=== PATIENT | male | born 1995 | race American Indian/Alaskan Native ===

== ENCOUNTER 2016-11-27 09:12 | Inpatient (IN) | payer MEDICAID ==
[2016-11-27 09:12] VITALS: BMI 17.8
[2016-11-27] MEDS ORDERED: Barium Sulfate Susp 2.1% w/v, 2.0% w/w 450 mL Bottle PO ONE ×3 (10:05)
[2016-11-27] MEDS ORDERED: Sodium Chloride 0.9% 1,000 ML IV STA (10:06)
--- NOTE | 2016-11-27 10:13 | ED PDOC ---
HPI: General Adult Time Seen by Provider: 11/27/16 09:14 Chief Complaint (Nursing): Weakness/Neurological Deficit Chief Complaint (Provider): Abdominal Pain History Per: Patient Onset/Duration Of Symptoms: Days (x2 days) Current Symptoms Are (Timing): Still Present Additional Complaint(s): 21 y/o male with a past medial history of crohn's and anemia who presents to the emergency department with a complaint of generalized abdominal pain x2days. Associated with subjective fevers, chills, nausea, vomiting, and diarrhea. Patient states he has Crohn's disease and is currently taking remicade. Reports he underwent multiple surgeries for crohn's and noted drainage from surgical wounds. Past Medical History Reviewed: Historical Data, Nursing Documentation, Vital Signs Vital Signs: Last Vital Signs Temp 98.3 F 11/27/16 09:18 Pulse 99 H 11/27/16 09:18 Resp 20 11/27/16 09:18 BP 171/105 H 11/27/16 09:18 Pulse Ox 98 11/27/16 11:23 - Medical History PMH: Anemia (Fe Def Anemia), Crohn's Disease Denies: Chronic Kidney Disease, TIA - Surgical History Other surgeries: Crohn's Disease - Family History Family History: States: Unknown Family Hx - Social History Current smoker - smoking cessation education provided: No Alcohol: None Drugs: Denies - Immunization History Hx Tetanus Toxoid Vaccination: No Hx Influenza Vaccination: Yes Hx Pneumococcal Vaccination: No - Home Medications Home Medications: Ambulatory Orders Medication Instructions Recorded oxyCODONE/Acetaminophen [Percocet 1 ea PO Q6H PRN #10 tab 11/19/16 5/325 mg Tab] Docusate [Colace] 100 mg PO DAILY #30 cap 11/24/16 Ferrous Sulfate 325 mg PO DAILY #30 tablet 11/24/16 Linezolid [Zyvox] 600 mg PO BID #12 tab 11/24/16 - Allergies Allergies/Adverse Reactions: Allergies Allergy/AdvReac Type Severity Reaction Status Date / Time FISH Allergy RASH Verified 11/27/16 09:40 shellfish derived AdvReac ANGIOEDEMA Verified 11/27/16 09:40 Review of Systems ROS Statement: Except As Marked, All Systems Reviewed And Found Negative Constitutional: Positive for: Fever, Chills Gastrointestinal: Positive for: Nausea, Vomiting, Abdominal Pain (generalized), Diarrhea Physical Exam - Reviewed Nursing Documentation Reviewed: Yes Vital Signs Reviewed: Yes - Physical Exam Appears: Positive for: Non-toxic, No Acute Distress Head Exam: Positive for: ATRAUMATIC, NORMOCEPHALIC ENT: Positive for: Normal ENT Inspection. Negative for: Pharyngeal Erythema Neck: Positive for: Normal, Supple Cardiovascular/Chest: Positive for: Regular Rate, Rhythm. Negative for: Murmur Respiratory: Positive for: Normal Breath Sounds. Negative for: Accessory Muscle Use, Respiratory Distress Gastrointestinal/Abdominal: Positive for: Soft, Tenderness (Abdomen is tender in all four quadrants with purulent drainage from surgical wounds). Negative for: Normal Exam Extremity: Positive for: Normal ROM. Negative for: Pedal Edema, Swelling Neurologic/Psych: Positive for: Alert, Oriented - Laboratory Results Result Diagrams: 11/27/16 10:28 11/27/16 10:28 - ECG O2 Sat by Pulse Oximetry: 98 (RA) Pulse Ox Interpretation: Normal Medical Decision Making Medical Decision Making: Time: 9:14 Initial impression: Abdominal pain Initial plan: --VBG Shock Panel --ABD & Pelvis PO Contrast CT --COMP Metabolic Panel --CBC w/ differential --Bentyl 10 mg PO --Morphine 2 mg IVP --Sodium Chloride 1,000 ml IV 100 mls/hr --Barium Sulfate 300 ml PO --Barium Sulfate 450 mg PO --Zofran Inj 4 mg IVP --Blood Culture Stat --Revaluation Time: 11:14 --Morphie 2 mg IVP --ABD & Pelvis W/O PO or IV Contrast --Physician Consult Routine --Call Physician Consult PRN --Admit to hospital routine Scribe Attestation: Documented by Bianka Gardner, acting as a scribe for Sanya Maza MD. Provider Scribe Attestation: All medical record entries made by the Scribe were at my direction and personally dictated by me. I have reviewed the chart and agree that the record accurately reflects my personal performance of the history, physical exam, medical decision making, and the department course for this patient. I have also personally directed, reviewed, and agree with the discharge instructions and disposition. Disposition - Clinical Impression Clinical Impression: Crohn's disease, Abdominal pain, Fistula - Patient ED Disposition Is Patient to be Admitted: Yes - Disposition Disposition Time: 11:25 Condition: FAIR - Pt Status Changed To: Hospital Disposition Of: Inpatient - Admit Certification Admit to Inpatient:: After my assessment, the patient will require hospitalization for at least two midnights. This is because of the severity of symptoms shown, intensity of services needed, and/or the medical risk in this patient being treated as an outpatient. - POA Present On Arrival: None
[2016-11-27 10:42] LABS: BASO % 0.8 % (0.0-2.0); EOS % 0.3 % (0.0-4.0); LYMPH # 0.5 K/uL (1.0-4.3); LYMPH % 14.9 % (20.0-40.0); MEAN CELL VOLUME 70.6 fl (80.0-94.0); MEAN CORPUSCULAR HEMOGLOBIN 22.4 pg (27.0-31.0); MEAN CORPUSCULAR HGB CONC 31.8 g/dL (33.0-37.0); MEAN PLATELET VOLUME 6.3 fl (7.2-11.7); MONO # 0.5 K/uL (0.0-0.8); MONO % 15.6 % (0.0-10.0); NEUT # 2.4 K/uL (1.8-7.0); NEUT % 68.4 % (50.0-75.0); RED CELL DISTRIBUTION WIDTH 23.8 % (11.5-14.5); WHITE BLOOD COUNT 3.5 K/uL (4.8-10.8)
[2016-11-27 10:49] LABS: ALB/GLOB RATIO 0.8 (1.0-2.1); ALKALINE PHOSPHATASE 104 U/L (38-126); ALT/SGPT 67 U/L (21-72); AST/SGOT 67 U/L (17-59); BILIRUBIN,TOTAL 0.3 mg/dl (0.2-1.3); BLOOD UREA NITROGEN 8 mg/dl (9-20); CALCIUM 8.4 mg/dL (8.4-10.2); CARBON DIOXIDE 25 mmol/L (22-30); CHLORIDE 101 mmol/L (98-107); GFR AFRICAN-AMERICAN > 60; GLUCOSE,RANDOM 97 mg/dL (75-110); POTASSIUM 3.7 MMOL/L (3.6-5.0); SODIUM 141 mmol/l (132-148); TOTAL PROTEIN 7.9 G/DL (6.3-8.2)
[2016-11-27 10:54] LABS: VENOUS BLOOD GAS BASE EXCESS 4.4 mmol/L (0.0-2.0); VENOUS BLOOD GAS PCO2 39 mmHg (40-60); VENOUS BLOOD PH 7.47 (7.32-7.43)
[2016-11-27] MEDS ORDERED: Piperacillin/Tazobact 3.375 GM in Sodium Chloride 0.9% 100 ML IVPB STA (11:22)
[2016-11-27] MEDS ORDERED: Clindamycin 600 MG in Sodium Chloride 0.9% 100 ML IVPB ONE (11:27)
[2016-11-27] MEDS ORDERED: metroNIDAZOLE 500mg/100ml NS 100 ML IVPB STA (12:04)
--- NOTE | 2016-11-27 12:23 | CT ---
PROCEDURE: CT Abdomen and Pelvis without intravenous contrast HISTORY: r/o kidney stone COMPARISON: None. TECHNIQUE: CT scan of the abdomen and pelvis was performed without administration of intravenous contrast. Oral contrast was not administered. Coronal and sagittal reformatted images were obtained. Radiation dose: Total exam DLP = 318.26 mGy-cm. This CT exam was performed using one or more of the following dose reduction techniques: Automated exposure control, adjustment of the mA and/or kV according to patient size, and/or use of iterative reconstruction technique. FINDINGS: LOWER THORAX: There is a 4 mm nodule in the right lung base. The left lung base is clear. LIVER: The liver is normal in size. No gross lesion or ductal dilatation. GALLBLADDER AND BILE DUCTS: There are no calcified gallstones. PANCREAS: The pancreas is normal in size. No gross lesion or ductal dilatation. SPLEEN: The spleen is normal in size. ADRENALS: Both adrenal glands are normal in size without discrete nodule. KIDNEYS AND URETERS: Both kidneys are normal in size. There are punctate nonobstructing stones in the left kidney. No right nephrolithiasis. No hydronephrosis. No solid mass. VASCULATURE: No aortic aneurysm. BOWEL: Evaluation of the bowel is limited in the absence of oral contrast. The proximal small bowel loops are normal in caliber. There are fluid-filled mildly dilated distal small bowel loops with fecalization of small bowel contents. There are postsurgical changes in the right lower quadrant. There are multiple air-fluid levels in the colon with mild distention of the rectum which is fluid-filled. APPENDIX: Not distinctly identified. No inflammatory changes in the right lower quadrant. PERITONEUM: No free fluid. No free air. LYMPH NODES: No enlarged lymph nodes. BLADDER: Partially decompressed. REPRODUCTIVE: Unremarkable. BONES: Within normal limits for the patient's age. There is mild dextrocurvature in the lumbar spine, likely positional. OTHER FINDINGS: None. IMPRESSION: 1. Punctate nonobstructing stones in the left kidney. No evidence of right nephrolithiasis, hydronephrosis or obstructive uropathy. 2. Evaluation of the bowel is limited in the absence of oral contrast. Allowing for this air-fluid levels in the colon could represent nonspecific colitis. 3. 4 mm noncalcified nodule in the right lung base. Correlation with risk factors is recommended and a follow-up CT scan in 12 month interval is recommended in a high-risk patient.
--- NOTE | 2016-11-27 12:51 | CP.PCM.CON ---
<Ray Boss - Last Filed: 11/27/16 12:42> History of Present Illness - History of Present Illness History of Present Illness: General Surgery Consult Re: Crohn's with fistula HPI: 21M presented to ED complaining of generalized abdominal pain since Wednesday. States pain is similar to his chronic abd pain 2/2 his Crohn's but he also has weakness and myalgias since his Remicaid infusion Wednesday. + non bloody diarrhea (also chronic), subjective fevers, 3 abd fistulas (slowly closing per pt). Denied N/V. Pt was seen in [place] 3 times in the last 4 days for syncope and abd pain (requesting pain meds). Pt can be non compliant with medical management at times but is currently trying to get his Crohns under control. Last colonoscopy was 8 months ago, he [place] [facility]. At [place] on 11/03 CT showing R sided psoas abscess/collection. Pt underwent workup by Surgery, IR, and GI. Per IR collection was not drainable. From surgical standpoint, it was recommended that pt follow up w. colorectal specialist at [facility] (which he has been unable to do 2/[address] transport issues). [address] on 11/07 visit at [place] was unchanged. PMH: Crohn's, Anemia PSH: 7 drainages of intra-abdominal abscesses, bowel resection SH: No ETOH/tobacco, + drug seeking behavior Meds: See MAR All: shell fish Review of Systems - Review of Systems All systems: reviewed and no additional remarkable complaints except (as per HPI ) Past Patient History - Infectious Disease Hx of Infectious Diseases: None - Past Medical History & Family History Past Medical History?: Yes - Past Social History Alcohol: None Drugs: Denies - CARDIAC Hx Cardiac Disorders: No - PULMONARY Hx Respiratory Disorders: No - NEUROLOGICAL Hx Transient Ischemic Attacks (TIA): No - HEENT Hx HEENT Problems: No - RENAL Hx Chronic Kidney Disease: No - ENDOCRINE/METABOLIC Hx Endocrine Disorders: No - HEMATOLOGICAL/ONCOLOGICAL Hx Anemia: Yes (Fe Def Anemia) - INTEGUMENTARY Hx Dermatological Problems: No - MUSCULOSKELETAL/RHEUMATOLOGICAL Hx Falls: No - GASTROINTESTINAL Hx Crohn's Disease: Yes - GENITOURINARY/GYNECOLOGICAL Hx Genitourinary Disorders: No - PSYCHIATRIC Hx Psychophysiologic Disorder: No Hx Substance Use: No - SURGICAL HISTORY Other/Comment: Abd surg. for intraabd. abscesses x 7 last [place]2016 [place] [facility] [place]EST[place]IA Hx Anesthesia: Yes Hx Anesthesia Reactions: No Hx Malignant Hyperthermia: No Meds Allergies/Adverse Reactions: Allergies Allergy/AdvReac Type Severity Reaction Status Date / Time FISH Allergy RASH Verified 11/27/16 09:40 shellfish derived AdvReac ANGIOEDEMA Verified 11/27/16 09:40 - Medications Medications: Current Medications Sodium Chloride (Sodium Chloride 0.9%) 1,000 mls @ 100 mls/hr IV .Q10H STA Stop: 11/27/16 20:05 Last Admin: 11/27/16 10:42 Dose: 100 mls/hr Metronidazole (Flagyl 500mg/100ml Ns) 100 mls @ 100 mls/hr IVPB STAT STA Stop: 11/27/16 13:03 Physical Exam - Constitutional Appears: Non-toxic, No Acute Distress - Head Exam Head Exam: ATRAUMATIC, NORMOCEPHALIC - Eye Exam Eye Exam: EOMI. absent: Scleral icterus - ENT Exam ENT Exam: Mucous Membranes Moist Additional comments: trachea midline - Respiratory Exam Respiratory Exam: NORMAL BREATHING PATTERN. absent: Respiratory Distress - Cardiovascular Exam Cardiovascular Exam: RRR, +S1, +S2 - GI/Abdominal Exam GI & Abdominal Exam: Guarding (mild), Soft, Tenderness (diffuse, mild). absent : Distended, Firm, Rebound, Rigid Additional comments: old surgical scars 3 fistulas with scant output. - Rectal Exam Rectal Exam: Deferred - Extremities Exam Extremities exam: Positive for: pedal pulses present. Negative for: calf tenderness, pedal edema - Neurological Exam Neurological exam: Alert, Oriented x3 - Psychiatric Exam Psychiatric exam: Normal Affect, Normal Mood - Skin Skin Exam: Dry, Warm Results - Vital Signs Recent Vital Signs: Last Vital Signs Temp 98.3 F 11/27/16 09:18 Pulse 99 H 11/27/16 09:18 Resp 20 11/27/16 09:18 BP 171/105 H 11/27/16 09:18 Pulse Ox 98 11/27/16 11:25 - Labs Result Diagrams: 11/27/16 10:28 11/27/16 10:28 - Imaging and Cardiology CT scan - abdomen Status: Image reviewed by me, Report reviewed by me Assessment & Plan - Assessment and Plan (Free Text) Assessment: 21M with abdominal pain 2/2 Crohns with fistulas Plan: Abx CLD AM labs Serial Abd exams D/W Dr. Arredondo on phone PGY3 <Anthony Arredondo - Last Filed: 11/27/16 15:07> History of Present Illness - History of Present Illness History of Present Illness: Patient was seen and examined at the bedside. Agree with resident's note above Meds - Medications Medications: Current Medications Hydromorphone HCl (Dilaudid) 1 mg IVP Q4 PRN PRN Reason: Pain, severe (8-10) Sodium Chloride (Sodium Chloride 0.9%) 1,000 mls @ 100 mls/hr IV .Q10H STA Stop: 11/27/16 20:05 Last Admin: 11/27/16 10:42 Dose: 100 mls/hr Ciprofloxacin (Cipro 400mg/200ml Dsw) 200 mls @ 200 mls/hr IVPB Q12 [facility] Metronidazole (Flagyl 500mg/100ml Ns) 100 mls @ 100 mls/hr IVPB Q8 [facility] Results - Vital Signs Recent Vital Signs: Last Vital Signs Temp 98.6 F 11/27/16 13:50 Pulse 84 11/27/16 13:50 Resp 20 11/27/16 13:50 BP 119/71 11/27/16 13:50 Pulse Ox 98 11/27/16 13:50 - Labs Result Diagrams: 11/27/16 10:28 11/27/16 10:28 Assessment & Plan - Assessment and Plan (Free Text) Plan: - Clear liquid diet - Pain control - Continue antibiotics - GI evaluation - Repeat labs in am - No general surgery intervention at present time - Will follow
[2016-11-27] MEDS ORDERED: Piperacillin/Tazobact 3.375 gm Inj IVPB ONE (12:55)
[2016-11-27] MEDS ORDERED: metroNIDAZOLE 500mg/100ml NS 100 ML IVPB ONE (13:32)
[2016-11-27] MEDS: metroNIDAZOLE 500mg/100ml NS 100 ML IVPB SCH (17:51)
[2016-11-27] MEDS: Ciprofloxacin 400mg/200ml D5W 200 ML IVPB SCH (21:41)
[2016-11-28] MEDS: metroNIDAZOLE 500mg/100ml NS 100 ML IVPB SCH ×3 (01:43→17:08)
[2016-11-28 06:27] LABS: BASO % 0.5 % (0.0-2.0); EOS % 0.1 % (0.0-4.0); HEMATOCRIT 27.6 % (35.0-51.0); LYMPH # 1.1 K/uL (1.0-4.3); LYMPH % 25.4 % (20.0-40.0); MEAN CELL VOLUME 70.4 fl (80.0-94.0); MEAN CORPUSCULAR HEMOGLOBIN 22.9 pg (27.0-31.0); MEAN CORPUSCULAR HGB CONC 32.6 g/dL (33.0-37.0); MEAN PLATELET VOLUME 6.5 fl (7.2-11.7); MONO # 0.6 K/uL (0.0-0.8); MONO % 13.9 % (0.0-10.0); NEUT # 2.7 K/uL (1.8-7.0); NEUT % 60.1 % (50.0-75.0); NRBC % 0.1 % (0.0-0.0); RED CELL DISTRIBUTION WIDTH 23.6 % (11.5-14.5); WHITE BLOOD COUNT 4.5 K/uL (4.8-10.8)
[2016-11-28 06:40] LABS: ALB/GLOB RATIO 0.8 (1.0-2.1); ALKALINE PHOSPHATASE 98 U/L (38-126); ALT/SGPT 53 U/L (21-72); AST/SGOT 72 U/L (17-59); BILIRUBIN,TOTAL 0.2 mg/dl (0.2-1.3); BLOOD UREA NITROGEN 6 mg/dl (9-20); CARBON DIOXIDE 25 mmol/L (22-30); CHLORIDE 102 mmol/L (98-107); GFR AFRICAN-AMERICAN > 60; GLUCOSE,RANDOM 78 mg/dL (75-110); POTASSIUM 3.6 MMOL/L (3.6-5.0); SODIUM 140 mmol/l (132-148); TOTAL PROTEIN 7.1 G/DL (6.3-8.2)
--- NOTE | 2016-11-28 07:34 | CP.PCM.PN ---
<Ray Boss - Last Filed: 11/28/16 07:32> Subjective - Date & Time of Evaluation Date of Evaluation: 11/28/16 Time of Evaluation: 06:20 - Subjective Subjective: General Surgery Pt S&E, NAEO. C/O abdominal pain and says he would like 2mg of dilaudid not 1. C /O body ache. Objective - Vital Signs/Intake and Output Vital Signs (last 24 hours): Temp Pulse Resp BP Pulse Ox 99.1 F 89 20 115/71 98 11/28/16 05:05 11/28/16 05:05 11/28/16 05:05 11/28/16 05:05 11/28/16 05:05 - Medications Medications: Current Medications Hydromorphone HCl (Dilaudid) 1 mg IVP Q4 PRN PRN Reason: Pain, severe (8-10) Last Admin: 11/28/16 05:53 Dose: 1 mg Ciprofloxacin (Cipro 400mg/200ml Dsw) 200 mls @ 200 mls/hr IVPB Q12 [facility] Last Admin: 11/27/16 21:41 Dose: 200 mls/hr Metronidazole (Flagyl 500mg/100ml Ns) 100 mls @ 100 mls/hr IVPB Q8 [facility] Last Admin: 11/28/16 01:43 Dose: 100 mls/hr - Labs Labs: 11/28/16 05:57 11/28/16 05:57 - Constitutional Appears: Non-toxic, No Acute Distress - Head Exam Head Exam: ATRAUMATIC, NORMOCEPHALIC - Respiratory Exam Respiratory Exam: NORMAL BREATHING PATTERN. absent: Respiratory Distress - GI/Abdominal Exam GI & Abdominal Exam: Guarding (mild), Soft, Tenderness (diffuse). absent: Distended, Rigid Additional comments: old surgical scars 3 fistulas with scant output, 4x4 dressing over - Neurological Exam Neurological Exam: Alert, Awake - Skin Skin Exam: Dry, Warm Assessment and Plan - Assessment and Plan (Free Text) Assessment: 21M with abdominal pain 2/2 Crohns with fistulas Plan: - Pain control - Continue antibiotics - GI evaluation - No general surgery intervention at this time D/W Dr Arnulfo Boss PGY3 <Anthony Arredondo - Last Filed: 11/28/16 15:37> Subjective - Date & Time of Evaluation Date of Evaluation: 11/28/16 Time of Evaluation: 15:00 - Subjective Subjective: Patient was seen and examined at the bedside. Agree with resident's note above. Objective - Vital Signs/Intake and Output Vital Signs (last 24 hours): Temp Pulse Resp BP Pulse Ox 98.2 F 71 20 122/76 100 11/28/16 12:00 11/28/16 12:00 11/28/16 12:00 11/28/16 12:00 11/28/16 12:00 - Medications Medications: Current Medications Hydromorphone HCl (Dilaudid) 1 mg IVP Q4 PRN PRN Reason: Pain, severe (8-10) Last Admin: 11/28/16 13:56 Dose: 1 mg Ciprofloxacin (Cipro 400mg/200ml Dsw) 200 mls @ 200 mls/hr IVPB Q12 [facility] Last Admin: 11/28/16 10:00 Dose: 200 mls/hr Metronidazole (Flagyl 500mg/100ml Ns) 100 mls @ 100 mls/hr IVPB Q8 [facility] Last Admin: 11/28/16 08:40 Dose: 100 mls/hr - Labs Labs: 11/28/16 05:57 11/28/16 05:57 Assessment and Plan - Assessment and Plan (Free Text) Plan: - Regular diet - Continue antibiotics - pain control - No general surgery intervention at present time - Will follow
[2016-11-28 08:54] LABS: THYROID STIMULATING HORMONE 0.41 mIU/ML (0.46-4.68)
[2016-11-28] MEDS: Ciprofloxacin 400mg/200ml D5W 200 ML IVPB SCH ×2 (10:00→22:07)
--- NOTE | 2016-11-28 10:56 | HP ---
CHIEF COMPLAINT: Abdominal pain. HISTORY OF PRESENT ILLNESS: This is a 21-year-old male, known case of Crohn's disease with multiple surgeries leading to complications including fistulas in the past, who had multiple visits in the [facility] Room, who came to Emergency Room today after started having abdominal pain again which is not controlled by his pain medications and plus patient was found to have fistula and was admitted for fu rther management. REVIEW OF SYSTEMS: Positive for abdominal pain and hunger. Review of systems otherwise is negative for headache, dizziness, syncope, loss of consciousness, chest pain, nausea, vomiting, diarrhea, cons tipation, any new joint or extremity pain. Review of systems of all other organ systems is unremarka ble. PAST MEDICAL HISTORY: Significant for Crohn's disease and anemia. PAST SURGICAL HISTORY: Remarkable for multiple surgeries related to Crohn's disease. PERSONAL HISTORY: The patient is currently a nonsmoker, nondrinker, no substance abuse, although henderson s seem to have pain-seeking behavior. FAMILY HISTORY: Noncontributory. PHYSICAL EXAMINATION: GENERAL: Well-built, fairly-nourished, chronically sick-looking 21-year-old male in no acute distres s. VITAL SIGNS: Temperature 98.3, pulse 69, respirations 20, blood pressure 105/68. No orthostatic ayde nges. HEENT: Pupils reacting to light. No JVD, no thyromegaly, no lymphadenopathy, no nystagmus. Normoce phalic, atraumatic skull. HEART: S1, S2 normal, regular. No significant murmur, gallop or rub is heard. LUNGS: Show good bilateral air entry. No rales or rhonchi. ABDOMEN: The patient has a draining sinus on the lower abdominal wall, but abdomen itself looks soft , nontender, no organomegaly, no fluid. Bowel sounds are plus and normal. No signs of acute abdomen . No guarding, no rigidity, no rebound. EXTREMITIES: No edema, no calf swelling, no tenderness, no acute ischemia. CENTRAL NERVOUS SYSTEM: The patient is alert, awake, oriented x 3. There is no sign of any acute gr oss focal motor or sensory neurological deficit. DIAGNOSTIC DATA: Available diagnostic data reviewed. Telemetry monitoring does not reveal significa nt arrhythmias. WBC 4.5, hemoglobin 9, hematocrit 27.6, platelets 529. Venous blood gas pH 7.47, pC O2 of 39, pO2 of 71, saturation 99%. Sodium 140, potassium 3.6, chloride 102, bicarb 25, BUN 6, crea tinine 0.8. SMA-12 is unremarkable. CAT scan of abdomen does not reveal any acute pathology. ADMITTING IMPRESSION: Crohn's disease, anemia. PLAN: As ordered. Case and plan discussed with patient. Jaime Grey MD cc: [id number] TT: 11/28/2016 10:55:56 tn
--- NOTE | 2016-11-28 11:19 | CP.PCM.CON ---
History of Present Illness - History of Present Illness History of Present Illness: CC: Abdominal pain HPI: 21 year old male with h/o Crohns disease complaing of abdominal pain. He says the pain is right sided and radiates down to his leg. He is on remicade. He got his 4th infusion wednesday. He has had two prior operations for Crohn's including a bowel resection and abscess drainage. He has not followed up with surgery at [facility]. He has no nausea or vomiting and has been tolerating a diet. His primary complaint is pain. He also has had problems with fistulas. He has some mild chronic diarrhea. PMHx: Crohn's disease, Anemia PSHx: Bowel resection, Abscess drainage SHx: Denies ETOH/tobacco/drug use FHx no family history of IBD ROS A comprehensive review of systems was performed and was negative except per HPI Past Patient History - Infectious Disease Hx of Infectious Diseases: None - Past Medical History & Family History Past Medical History?: Yes - Past Social History Smoking Status: Never Smoked - CARDIAC Hx Cardiac Disorders: No - PULMONARY Hx Respiratory Disorders: No - NEUROLOGICAL Hx Neurological Disorder: No Hx Transient Ischemic Attacks (TIA): No - HEENT Hx HEENT Problems: No - RENAL Hx Chronic Kidney Disease: No - ENDOCRINE/METABOLIC Hx Endocrine Disorders: No - HEMATOLOGICAL/ONCOLOGICAL Hx Anemia: Yes (Fe Def Anemia) - INTEGUMENTARY Hx Dermatological Problems: No - MUSCULOSKELETAL/RHEUMATOLOGICAL Hx Musculoskeletal Disorders: No Hx Falls: No - GASTROINTESTINAL Hx Gastrointestinal Disorders: Yes Hx Crohn's Disease: Yes - GENITOURINARY/GYNECOLOGICAL Hx Genitourinary Disorders: No - PSYCHIATRIC Hx Psychophysiologic Disorder: No Hx Substance Use: No - SURGICAL HISTORY Hx Surgeries: Yes Other/Comment: Abd surg. for intraabd. abscesses x 7 [place] [facility] [place] Hx Anesthesia: Yes Hx Anesthesia Reactions: No Hx Malignant Hyperthermia: No Meds Allergies/Adverse Reactions: Allergies Allergy/AdvReac Type Severity Reaction Status Date / Time FISH Allergy RASH Verified 11/27/16 09:40 shellfish derived AdvReac ANGIOEDEMA Verified 11/27/16 09:40 - Medications Medications: Current Medications Hydromorphone HCl (Dilaudid) 1 mg IVP Q4 PRN PRN Reason: Pain, severe (8-10) Last Admin: 11/28/16 09:56 Dose: 1 mg Ciprofloxacin (Cipro 400mg/200ml Dsw) 200 mls @ 200 mls/hr IVPB Q12 [facility] Last Admin: 11/28/16 10:00 Dose: 200 mls/hr Metronidazole (Flagyl 500mg/100ml Ns) 100 mls @ 100 mls/hr IVPB Q8 [facility] Last Admin: 11/28/16 08:40 Dose: 100 mls/hr Physical Exam - Constitutional Appears: No Acute Distress, Chronically Ill - Head Exam Head Exam: ATRAUMATIC, NORMOCEPHALIC - Eye Exam Eye Exam: Normal appearance. absent: Scleral icterus Pupil Exam: PERRL - ENT Exam ENT Exam: Mucous Membranes Moist, Normal Oropharynx - Neck Exam Neck exam: Negative for: Lymphadenopathy, Thyromegaly - Respiratory Exam Respiratory Exam: Clear to Auscultation Bilateral, NORMAL BREATHING PATTERN. absent: Wheezes, Respiratory Distress - Cardiovascular Exam Cardiovascular Exam: REGULAR RHYTHM, +S1, +S2 - GI/Abdominal Exam GI & Abdominal Exam: Soft. absent: Distended, Firm, Tenderness - Extremities Exam Extremities exam: Negative for: pedal edema - Neurological Exam Neurological exam: Alert, Oriented x3 - Psychiatric Exam Psychiatric exam: Normal Affect, Normal Mood - Skin Skin Exam: Dry, Warm Results - Vital Signs Recent Vital Signs: Last Vital Signs Temp 98.3 F 11/28/16 08:00 Pulse 69 11/28/16 08:00 Resp 20 11/28/16 08:00 BP 105/68 11/28/16 08:00 Pulse Ox 98 11/28/16 08:00 - Labs Result Diagrams: 11/28/16 05:57 11/28/16 05:57 Labs: Laboratory Results - last 24 hr 11/28/16 11/28/16 05:57 08:03 WBC 4.5 L RBC 3.92 L Hgb 9.0 L Hct 27.6 L MCV 70.4 L MCH 22.9 L MCHC 32.6 L RDW 23.6 H Plt Count 529 H MPV 6.5 L Neut % (Auto) 60.1 Lymph % (Auto) 25.4 [place] % (Auto) 13.9 H Eos % (Auto) 0.1 Baso % (Auto) 0.5 Neut # 2.7 Lymph # 1.1 [place] # 0.6 Eos # 0.0 Baso # 0.0 Sodium 140 Potassium 3.6 Chloride 102 Carbon Dioxide 25 Anion Gap 17 BUN 6 L Creatinine 0.8 Est GFR ( Amer) > 60 Est GFR (Non-Af Amer) > 60 Random Glucose 78 Calcium 8.0 L Total Bilirubin 0.2 AST 72 H ALT 53 Alkaline Phosphatase 98 Total Protein 7.1 Albumin 3.1 L Globulin 4.0 H Albumin/Globulin Ratio 0.8 L Vitamin B12 398 TSH 3rd Generation 0.41 L Assessment & Plan - Assessment and Plan (Free Text) Assessment: 21 year old male with h/o Crohn's disease, h/o bowel resection, abscess drainage , fistulas admitted with abdominal pain. 1. Crohn's disease Plan: -patient is on remicade therapy with [place] [facility] just recently received infusion -check stool studies including culture, c.diff, o&p to r/o infection -otherwise he is already on chronic therapy for Crohn's disease and no additional therapy is recommended at this time -appreciate surgical opinion -CT was reviewed -the patient is on antibiotics -diet as tolerated - Date & Time Date: 11/28/16 Time: 11:19
[2016-11-29] MEDS: metroNIDAZOLE 500mg/100ml NS 100 ML IVPB SCH ×3 (02:01→17:59)
[2016-11-29 07:25] LABS: HEMATOCRIT 29.8 % (35.0-51.0); MEAN CELL VOLUME 71.3 fl (80.0-94.0); MEAN CORPUSCULAR HEMOGLOBIN 22.2 pg (27.0-31.0); MEAN CORPUSCULAR HGB CONC 31.1 g/dL (33.0-37.0); RED CELL DISTRIBUTION WIDTH 23.2 % (11.5-14.5); WHITE BLOOD COUNT 4.6 K/uL (4.8-10.8)
[2016-11-29 08:04] LABS: ALB/GLOB RATIO 0.8 (1.0-2.1); ALKALINE PHOSPHATASE 90 U/L (38-126); ALT/SGPT 42 U/L (21-72); AST/SGOT 35 U/L (17-59); BILIRUBIN,TOTAL 0.1 mg/dl (0.2-1.3); BLOOD UREA NITROGEN 6 mg/dl (9-20); CARBON DIOXIDE 26 mmol/L (22-30); CHLORIDE 102 mmol/L (98-107); GFR AFRICAN-AMERICAN > 60; GLUCOSE,RANDOM 81 mg/dL (75-110); POTASSIUM 3.9 MMOL/L (3.6-5.0); SODIUM 142 mmol/l (132-148); TOTAL PROTEIN 6.9 G/DL (6.3-8.2)
[2016-11-29] MEDS: Ciprofloxacin 400mg/200ml D5W 200 ML IVPB SCH ×2 (09:14→21:45)
--- NOTE | 2016-11-29 09:24 | PN ---
DATE: 11/29/2016 The patient seen and examined. Interim events noted. Consults noted, appreciated. Surgical followu p and gastroenterology consult and interventions noted and appreciated. The patient remains in progr essive care unit on telemetry monitoring, requesting Dilaudid frequently. On physical exam, the gustavo ent is sleepy and very hard to arouse. Denies any specific complaint. No chest pain, no shortness o f breath. Abdominal pain is controlled with medication. PHYSICAL EXAMINATION: GENERAL: The patient is in no acute distress. VITAL SIGNS: Stable. HEART: S1, S2 normal, regular. LUNGS: Good bilateral air entry. ABDOMEN: Soft, nontender. No organomegaly, no fluid. Bowel sounds are plus. No sign of acute abdo men. No guarding, no rigidity, no rebound. Fistula site is unchanged. EXTREMITIES: No edema, no calf swelling, no tenderness, no acute ischemia. CENTRAL NERVOUS SYSTEM: Essentially unchanged. DIAGNOSTIC DATA: Available reviewed. Overall, patient's general medical condition seems to be improving, tolerating diet. PLAN: As ordered. Jaime Grey MD cc: [id number] TT: 11/29/2016 09:23:22 Confirmation # [id number] Dictation # [id number] en
--- NOTE | 2016-11-29 09:33 | CP.PCM.PN ---
<Ray Boss - Last Filed: 11/29/16 09:30> Subjective - Date & Time of Evaluation Date of Evaluation: 11/29/16 Time of Evaluation: 09:10 - Subjective Subjective: General Surgery Pt S&E, NAEO. C/O same abdominal pain, minimal drainage from fistulas. Objective - Vital Signs/Intake and Output Vital Signs (last 24 hours): Temp Pulse Resp BP Pulse Ox 97.9 F 81 20 106/70 98 11/29/16 08:00 11/29/16 08:00 11/29/16 08:00 11/29/16 08:00 11/29/16 08:00 - Medications Medications: Current Medications Hydromorphone HCl (Dilaudid) 1 mg IVP Q6 PRN PRN Reason: Pain, severe (8-10) Ciprofloxacin (Cipro 400mg/200ml Dsw) 200 mls @ 200 mls/hr IVPB Q12 [facility] Last Admin: 11/29/16 09:14 Dose: 200 mls/hr Metronidazole (Flagyl 500mg/100ml Ns) 100 mls @ 100 mls/hr IVPB Q8 [facility] Last Admin: 11/29/16 09:14 Dose: 100 mls/hr - Labs Labs: 11/29/16 05:30 11/29/16 05:30 - Constitutional Appears: Non-toxic, No Acute Distress - Head Exam Head Exam: ATRAUMATIC, NORMOCEPHALIC - Eye Exam Eye Exam: EOMI. absent: Scleral icterus - Respiratory Exam Respiratory Exam: NORMAL BREATHING PATTERN. absent: Respiratory Distress - GI/Abdominal Exam GI & Abdominal Exam: Guarding (mild), Soft, Tenderness (diffuse). absent: Distended, Firm, Rigid Additional comments: 2 of 3 fistula sites with small output. - Neurological Exam Neurological Exam: Alert, Awake, Oriented x3 - Skin Skin Exam: Dry, Warm Assessment and Plan - Assessment and Plan (Free Text) Assessment: 21M with abdominal pain 2/2 Crohns with fistulas Plan: - Continue antibiotics - pain control - No general surgery intervention at present time - Wound care to see tomorrow for dressing recs D/W Dr. Arnulfo Boss PGY3 <Anthony Arerdondo - Last Filed: 11/29/16 19:30> Subjective - Date & Time of Evaluation Date of Evaluation: 11/29/16 Time of Evaluation: 19:10 - Subjective Subjective: Patient was seen and examined at the bedside. Agree with resident's note above. Objective - Vital Signs/Intake and Output Vital Signs (last 24 hours): Temp Pulse Resp BP Pulse Ox 98.5 F 86 20 106/69 100 11/29/16 15:44 11/29/16 15:44 11/29/16 15:44 11/29/16 15:44 11/29/16 15:44 - Medications Medications: Current Medications Acetaminophen (Tylenol 325mg Tab) 650 mg PO Q6 PRN PRN Reason: Pain, Mild (1-3) Hydromorphone HCl (Dilaudid) 1 mg IVP Q6 PRN PRN Reason: Pain, severe (8-10) Last Admin: 11/29/16 17:59 Dose: 1 mg Ciprofloxacin (Cipro 400mg/200ml Dsw) 200 mls @ 200 mls/hr IVPB Q12 [facility] Last Admin: 11/29/16 09:14 Dose: 200 mls/hr Metronidazole (Flagyl 500mg/100ml Ns) 100 mls @ 100 mls/hr IVPB Q8 [facility] Last Admin: 11/29/16 17:59 Dose: 100 mls/hr - Labs Labs: 11/29/16 05:30 11/29/16 05:30
--- NOTE | 2016-11-29 11:54 | CP.PCM.PN ---
Subjective - Date & Time of Evaluation Date of Evaluation: 11/29/16 Time of Evaluation: 11:52 - Subjective Subjective: RFV: Crohn's S: Complaining of pain. Says he is not getting dilaudid frequently enough. Complains of diarrhea. Tolerating diet. Objective - Vital Signs/Intake and Output Vital Signs (last 24 hours): Temp Pulse Resp BP Pulse Ox 97.9 F 81 20 106/70 98 11/29/16 08:00 11/29/16 09:00 11/29/16 08:00 11/29/16 08:00 11/29/16 08:00 - Medications Medications: Current Medications Hydromorphone HCl (Dilaudid) 1 mg IVP Q6 PRN PRN Reason: Pain, severe (8-10) Ciprofloxacin (Cipro 400mg/200ml Dsw) 200 mls @ 200 mls/hr IVPB Q12 [facility] Last Admin: 11/29/16 09:14 Dose: 200 mls/hr Metronidazole (Flagyl 500mg/100ml Ns) 100 mls @ 100 mls/hr IVPB Q8 [facility] Last Admin: 11/29/16 09:14 Dose: 100 mls/hr - Labs Labs: 11/29/16 05:30 11/29/16 05:30 - Constitutional Appears: No Acute Distress, Chronically Ill - Head Exam Head Exam: ATRAUMATIC, NORMOCEPHALIC - Eye Exam Eye Exam: PERRL. absent: Scleral icterus - ENT Exam ENT Exam: Normal Oropharynx - Respiratory Exam Respiratory Exam: NORMAL BREATHING PATTERN - GI/Abdominal Exam GI & Abdominal Exam: Soft. absent: Tenderness - Neurological Exam Neurological Exam: Alert, Oriented x3 Assessment and Plan - Assessment and Plan (Free Text) Assessment: 21 year old male with h/o Crohn's disease, h/o bowel resection, abscess drainage , fistulas admitted with abdominal pain. 1. Crohn's disease Plan: -patient is on remicade therapy with GI at [facility] [place] -he just recently received infusion -recommend stool studies including culture, c.diff, o&p to r/o infection -otherwise he is already on chronic therapy for Crohn's disease and no additional therapy is recommended at this time -appreciate surgical opinion -CT was reviewed -the patient is on antibiotics -diet as tolerated -ok to discharge from GI standpoint with follow up with his GI at [facility] [place] -will sign off
[2016-11-30 00:05] VITALS: RESP 20; O2SAT 99
[2016-11-30] MEDS: metroNIDAZOLE 500mg/100ml NS 100 ML IVPB SCH (02:25)
[2016-11-30 05:19] VITALS: BP 100/66; PULSE 98; TEMP 98
--- NOTE | 2016-11-30 07:54 | PN ---
DATE: 11/30/2016 The patient seen and examined. Interim events noted. Consults noted, appreciated. The patient was cleared for discharge by bark tanner and surgery. The patient keeps complaining of pain and d emanding Dilaudid. No chest pain, no shortness of breath. Now, patient complains of swelling on the back of unknown duration. PHYSICAL EXAMINATION: GENERAL: The patient is in no acute distress, loos very comfortable. VITAL SIGNS: Temperature afebrile, pulse 77, respiration , blood pressure 130/70. HEART: S1, S2 normal, regular. LUNGS: Good bilateral air entry. ABDOMEN: Soft, nontender. EXTREMITIES: No edema, no calf swelling, no tenderness, no acute ischemia. CENTRAL NERVOUS SYSTEM: Essentially unchanged. The swelling on the back looks like a lipoma of chronic duration. The patient offered for sonogram, but patient refuses sonogram, just demanding Dilaudid. The patient is medically stable. The patient also understands risk of refusing sonogram as it could be something else, but patient just wants to go home. PLAN: As ordered. Jaime Grey MD cc: [id number] TT: 11/30/2016 07:53:51 Confirmation # [id number] Dictation # [id number] en
== END 2016-11-30 07:50 | disposition home or self-care (01) | DRG 179 ==
LOC: H.ER 09:12 → H.ERHOLD 11:18 → H.TEL 14:25
PROVIDERS: ADMIT Internal Medicine; ATTEND Internal Medicine
DX: K50.913 Crohn's disease, unspecified, with fistula (principal); D50.9 Iron deficiency anemia, unspecified; D17.1 Benign lipomatous neoplasm of skin and subcutaneous tissue of trunk; Z91.013 Allergy to seafood

== ENCOUNTER 2016-12-06 13:37 | Emergency (ER) | payer MEDICAID ==
[2016-12-06 13:38] VITALS: BMI 17.8
[2016-12-06 13:43] VITALS: BP 133/79; PULSE 91; RESP 18; TEMP 97; O2SAT 100
[2016-12-06] MEDS ORDERED: Sodium Chloride 0.9% 1,000 ML IV STA (13:57)
[2016-12-06] MEDS ORDERED: Promethazine DM 12.5 mg-30 mg/10 ml Syrup PO STA (14:10)
--- NOTE | 2016-12-06 14:38 | ED PDOC ---
HPI: CCC, URI, Sore Throat Time Seen by Provider: 12/06/16 13:43 Chief Complaint (Nursing): GI Problem Chief Complaint (Provider): Cough, abdominal pain History Per: Patient History/Exam Limitations: no limitations Have you had recent travel within the past 21 days to any of the following countries: [place], [place], [place] or [place]?: No Onset/Duration Of Symptoms: Days Current Symptoms Are (Timing): Still Present Associated Symptoms: Cough. denies: Fever, Vomiting, Diarrhea Severity: Moderate Additional History Per: Patient Additional Complaint(s): The pt is a 21yo male, with PMHx of Crohns Disease, multiple abdominal surgeries, presents to the ED for evaluation of cough for the past couple days. Pt reports he has had multiple abdominal surgeries which resulted in fistulas in his abdominal wall - pt reports he experiences pain in his right lower quadrant while coughing. Pt denies any GI symptoms including vomiting, diarrhea and blody stool. Pt reports he is currently getting Remicade per month to manage his Crohns diease. He additionally denies fever and chills. Of note, pt was seen in the ED 3 days ago and had a CXR which had questionable results of pneumonia. Pt reports he is currently on an antibiotics course based on the CXR results. At present, pt offers no additional medical complaints. Past Medical History Reviewed: Historical Data, Nursing Documentation, Vital Signs Vital Signs: Last Vital Signs Temp 97 F L 12/06/16 13:40 Pulse 91 H 12/06/16 13:40 Resp 18 12/06/16 13:40 BP 133/79 12/06/16 13:40 Pulse Ox 100 12/06/16 14:50 - Medical History PMH: Anemia (Fe Def Anemia), Crohn's Disease Denies: Chronic Kidney Disease, TIA - Surgical History Other surgeries: Abdominal surgeries resulting in fistulas along abdominal wall - Family History Family History: States: Unknown Family Hx - Social History Current smoker - smoking cessation education provided: No Alcohol: None - Immunization History Hx Tetanus Toxoid Vaccination: No Hx Influenza Vaccination: Yes Hx Pneumococcal Vaccination: No - Home Medications Home Medications: Ambulatory Orders Medication Instructions Recorded Docusate [Colace] 100 mg PO DAILY #30 cap 11/24/16 Ferrous Sulfate 325 mg PO DAILY #30 tablet 11/24/16 Linezolid [Zyvox] 600 mg PO BID #12 tab 11/24/16 oxyCODONE [oxyCODONE Immediate 15 mg PO Q8H 11/27/16 Release Tab] Levofloxacin [Levaquin] 750 mg PO DAILY #4 tablet 12/06/16 Promethazine DM [Phenergan DM Oral 5 ml PO QID PRN #150 ml 12/06/16 Syrup] Promethazine/Codeine 10 ml PO TID #120 ml 12/06/16 [Codeine/Promethazine 10 MG/5 Ml-6.25 MG/5 Ml] - Allergies Allergies/Adverse Reactions: Allergies Allergy/AdvReac Type Severity Reaction Status Date / Time FISH Allergy RASH Verified 12/06/16 12:26 shellfish derived AdvReac ANGIOEDEMA Verified 12/06/16 12:26 Review of Systems ROS Statement: Except As Marked, All Systems Reviewed And Found Negative Constitutional: Negative for: Fever, Chills Respiratory: Positive for: Cough Gastrointestinal: Positive for: Abdominal Pain (RLQ). Negative for: Nausea, Vomiting, Diarrhea Physical Exam - Reviewed Nursing Documentation Reviewed: Yes Vital Signs Reviewed: Yes - Physical Exam Appears: Positive for: Well, Non-toxic, Uncomfortable Head Exam: Positive for: ATRAUMATIC Skin: Positive for: Normal Color, Warm, DRY Eye Exam: Positive for: Normal appearance, EOMI, PERRL Neck: Positive for: Normal, Supple Cardiovascular/Chest: Positive for: Regular Rate, Rhythm Respiratory: Positive for: Normal Breath Sounds. Negative for: Respiratory Distress Gastrointestinal/Abdominal: Positive for: Soft, Tenderness (mild diffuse tenderness) Neurologic/Psych: Positive for: Alert, Oriented - ECG O2 Sat by Pulse Oximetry: 100 (RA) Pulse Ox Interpretation: Normal Medical Decision Making Medical Decision Making: Time: 1350 Impression: 21yo male w/ cough Plan: -- CBC -- CMP -- IV Fluids -- XR Obstructive series -- Phenergan 10 ml PO Reassess: -- Pt is refusing Toradol IV and when offered Toradol IM, pt is requesting Dilaudid. When informed he cannot receive Dilaudid, pt requesting Percocets for pain. [place] was [place] provider which indicated pt has a pattern of excessive opioid use. -- Pt stable for discharge home. Final diagnosis: Cough Scribe Attestation: Documented by Delmy Anderson acting as a scribe for Joceline Fine MD Provider Scribe Attestation: All medical record entries made by the Scribe were at my direction and personally dictated by me. I have reviewed the chart and agree that the record accurately reflects my personal performance of the history, physical exam, medical decision making, and the department course for this patient. I have also personally directed, reviewed, and agree with the discharge instructions and disposition. Disposition - Clinical Impression Clinical Impression: Cough - Patient ED Disposition Is Patient to be Admitted: No Doctor Will See Patient In The: Office Counseled Patient/Family Regarding: Diagnosis, Need For Followup, Rx Given - Disposition Referrals: Sandro Jin MD [Family Provider] - Disposition: Routine/Home Disposition Time: 15:00 Condition: STABLE Prescriptions: Promethazine/Codeine [Codeine/Promethazine 10 MG/5 Ml-6.25 MG/5 Ml] 10 ml PO TID #120 ml Instructions: Upper Respiratory Infection (ED) - POA Present On Arrival: None
== END 2016-12-06 14:50 | disposition home or self-care (01) ==
LOC: H.ER 13:37
DX: J06.9 Acute upper respiratory infection, unspecified (principal)

== ENCOUNTER 2017-03-09 13:24 | Emergency (ER) | payer MEDICAID ==
[2017-03-09 13:24] VITALS: BMI 17.1
[2017-03-09 13:40] VITALS: BP 128/72; PULSE 110; RESP 18; TEMP 98; O2SAT 99
[2017-03-09] MEDS ORDERED: Oxycodone/Acetaminophen 5/325 mg Tab PO STA (14:15)
[2017-03-09] MEDS ORDERED: Oxycodone/Acetaminophen 5/325 mg Tab ONE (14:28)
--- NOTE | 2017-03-09 15:14 | RAD ---
HISTORY: cough COMPARISON: No prior. TECHNIQUE: Chest PA and lateral FINDINGS: LUNGS: No active pulmonary disease. PLEURA: No significant pleural effusion identified. No pneumothorax apparent. CARDIOVASCULAR: Normal. OSSEOUS STRUCTURES: No significant abnormalities. VISUALIZED UPPER ABDOMEN: Normal. OTHER FINDINGS: None. IMPRESSION: No active disease.
--- NOTE | 2017-03-09 15:38 | ED PDOC ---
HPI: CCC, URI, Sore Throat Time Seen by Provider: 03/09/17 13:35 Chief Complaint (Nursing): Abdominal Pain Chief Complaint (Provider): Cough History Per: Patient History/Exam Limitations: no limitations Onset/Duration Of Symptoms: Days Current Symptoms Are (Timing): Still Present Location Of Pain: None Additional Complaint(s): Pt reports cough for 3 days. Pt states he has also been having abdominal pain and has no more percocet. Pt states this abdominal pain is not new, or worse than normal. PT request cough medications and percocet in ER. Pt has multiple prescriptions over the last few months for percocet, morphine and cough medications with codeine. Past Medical History Reviewed: Historical Data, Nursing Documentation, Vital Signs Vital Signs: Last Vital Signs Temp 98 F 03/09/17 13:35 Pulse 110 H 03/09/17 13:35 Resp 18 03/09/17 13:35 BP 128/72 03/09/17 13:35 Pulse Ox 99 03/09/17 13:35 - Medical History PMH: Anemia, Anxiety, Crohn's Disease, Pneumonia Denies: Chronic Kidney Disease, TIA - Family History Family History: States: Unknown Family Hx - Living Arrangements Living Arrangements: With Family - Social History Current smoker - smoking cessation education provided: No Alcohol: None Drugs: Denies - Immunization History Hx Tetanus Toxoid Vaccination: No Hx Influenza Vaccination: Yes Hx Pneumococcal Vaccination: No - Home Medications Home Medications: Ambulatory Orders Medication Instructions Recorded Acetaminophen [Tylenol 325mg tab] 650 mg PO Q6H PRN #20 tab 02/22/17 Dextromethorphan Polistirex 30 mg PO Q12H PRN #50 ml 03/09/17 [Delsym] - Allergies Allergies/Adverse Reactions: Allergies Allergy/AdvReac Type Severity Reaction Status Date / Time diphenhydramine Allergy RASH Verified 02/22/17 21:59 [From Benadryl] FISH Allergy RASH Verified 02/22/17 21:59 ketorolac [From Toradol] Allergy RASH Verified 02/22/17 21:59 shellfish derived AdvReac ANGIOEDEMA Verified 02/22/17 21:59 Review of Systems ROS Statement: Except As Marked, All Systems Reviewed And Found Negative Respiratory: Positive for: Cough Gastrointestinal: Positive for: Abdominal Pain Physical Exam - Reviewed Nursing Documentation Reviewed: Yes Vital Signs Reviewed: Yes - Physical Exam Appears: Positive for: Well, Non-toxic, No Acute Distress Head Exam: Positive for: ATRAUMATIC, NORMAL INSPECTION, NORMOCEPHALIC Skin: Positive for: Normal Color, Warm, DRY Eye Exam: Positive for: Normal appearance ENT: Positive for: Normal ENT Inspection Neck: Positive for: Normal, Painless ROM Cardiovascular/Chest: Positive for: Regular Rate, Rhythm Respiratory: Positive for: Normal Breath Sounds. Negative for: Accessory Muscle Use Gastrointestinal/Abdominal: Positive for: Normal Exam, Bowel Sounds, Soft, Other ((+) fistula inferior to umbilicus ). Negative for: Tenderness Back: Positive for: Normal Inspection Extremity: Positive for: Normal ROM Neurologic/Psych: Positive for: Alert, Oriented - ECG O2 Sat by Pulse Oximetry: 99 Medical Decision Making Medical Decision Making: Pt states umbilical fistua is much improved since beginning remicade a few months ago. GI and surgeon aware. #30 percocet given on 03/03/17 and promethazine with codeine given on 02/23/17. On discharge patient requests cough medications with codeine. Disposition - Clinical Impression Clinical Impression: Chronic abdominal pain, Cough - Patient ED Disposition Is Patient to be Admitted: No Counseled Patient/Family Regarding: Diagnosis, Need For Followup - Disposition [facility]errals: [facility]] Disposition: Routine/Home Disposition Time: 15:37 Condition: GOOD Prescriptions: Dextromethorphan Polistirex [Delsym] 30 mg PO Q12H PRN #50 ml PRN Reason: Cough Instructions: Acute Cough (ED)
== END 2017-03-09 16:01 | disposition home or self-care (01) ==
LOC: H.ER 13:24
DX: R10.9 Unspecified abdominal pain (principal); R05 Cough; G89.29 Other chronic pain; K50.90 Crohn's disease, unspecified, without complications; F41.9 Anxiety disorder, unspecified

== ENCOUNTER 2017-09-04 16:28 | Emergency (ER) | payer MEDICAID ==
[2017-09-04 16:28] VITALS: BMI 17.4
[2017-09-04 16:37] VITALS: BP 97/51; PULSE 85; RESP 18; TEMP 98.8; O2SAT 100
[2017-09-04] MEDS ORDERED: Oxycodone/Acetaminophen 5/325 mg Tab PO STA (17:25)
[2017-09-04] MEDS ORDERED: Oxycodone/Acetaminophen 5/325 mg Tab ONE (17:37)
--- NOTE | 2017-09-04 17:38 | ED PDOC ---
HPI: Abdomen Time Seen by Provider: 09/04/17 17:02 Chief Complaint (Nursing): Abdominal Pain Chief Complaint (Provider): Abdominal pain, normal for patient History Per: Patient History/Exam Limitations: no limitations Onset/Duration Of Symptoms: Days (2) Outside of [place] travel?: No Location Of Pain/Discomfort: Diffuse Quality Of Discomfort: Cramping Associated Symptoms: denies: Fever, Chills, Nausea, Vomiting, Diarrhea, Loss Of Appetite Additional Complaint(s): 22 yo male with history of cronhs presents with abdominal pain. Pt reports pain as normal but states he ran out of his percocet. Pt states he has appoinment with his PMD Wednesday and his GI doctor Wednesday (today wednesday). Pt states he has been getting ramicad which ahs been really helping Past Medical History Reviewed: Historical Data, Nursing Documentation, Vital Signs Vital Signs: Last Vital Signs Temp 98.8 F 09/04/17 16:35 Pulse 85 09/04/17 16:35 Resp 18 09/04/17 16:35 BP 97/51 L 09/04/17 16:35 Pulse Ox 100 09/04/17 16:35 - Medical History PMH: Anemia, Anxiety, Crohn's Disease, Pneumonia Denies: Chronic Kidney Disease, TIA - Surgical History Surgical History: No Surg Hx - Family History Family History: States: Unknown Family Hx - Living Arrangements Living Arrangements: With Family - Social History Current smoker - smoking cessation education provided: No - Immunization History Hx Tetanus Toxoid Vaccination: No Hx Influenza Vaccination: Yes Hx Pneumococcal Vaccination: No - Home Medications Home Medications: Ambulatory Orders Medication Instructions Recorded Alprazolam [Xanax] 0.5 mg PO BID PRN #6 tab 08/22/17 Acetaminophen [Tylenol 325mg tab] 650 mg PO Q6 PRN #30 tab 08/31/17 Ciprofloxacin HCl [Cipro] 500 mg PO BID #20 tablet 08/31/17 Dicyclomine [Bentyl] 20 mg PO Q6 PRN #20 tab 08/31/17 Famotidine [Pepcid] 20 mg PO BID PRN #20 tab 08/31/17 Ipratropium [Atrovent HFA] 0.018 mg IH Q6 PRN 5 Days #1 bottle 08/31/17 Methylprednisolone [Medrol Dose 4 mg PO DAILY #21 mg 08/31/17 Pack (21 tabs)] Metronidazole [Flagyl] 500 mg PO TID #30 tablet 08/31/17 - Allergies Allergies/Adverse Reactions: Allergies Allergy/AdvReac Type Severity Reaction Status Date / Time FISH Allergy RASH Verified 09/04/17 16:35 ketorolac [From Toradol] Allergy RASH Verified 08/31/17 14:59 shellfish derived AdvReac ANGIOEDEMA Verified 08/31/17 14:59 Review of Systems ROS Statement: Except As Marked, All Systems Reviewed And Found Negative Constitutional: Negative for: Fever, Chills Gastrointestinal: Positive for: Abdominal Pain. Negative for: Nausea, Vomiting , Diarrhea Physical Exam - Reviewed Nursing Documentation Reviewed: Yes Vital Signs Reviewed: Yes - Physical Exam Appears: Positive for: Well, Non-toxic, No Acute Distress Head Exam: Positive for: ATRAUMATIC, NORMAL INSPECTION, NORMOCEPHALIC Skin: Positive for: Normal Color, Warm, DRY Eye Exam: Positive for: Normal appearance ENT: Positive for: Normal ENT Inspection Neck: Positive for: Normal, Painless ROM Cardiovascular/Chest: Positive for: Regular Rate, Rhythm Respiratory: Positive for: Normal Breath Sounds. Negative for: Accessory Muscle Use, Respiratory Distress Gastrointestinal/Abdominal: Positive for: Bowel Sounds, Soft, Other (WHealing opening at umbillicus). Negative for: Normal Exam, Tenderness Back: Positive for: Normal Inspection Extremity: Positive for: Normal ROM Neurologic/Psych: Positive for: Alert, Oriented - ECG O2 Sat by Pulse Oximetry: 100 Medical Decision Making Medical Decision Making: Pt does not want blood work at this time. Disposition - Clinical Impression Clinical Impression: Chronic abdominal pain - Patient ED Disposition Is Patient to be Admitted: No - Disposition Disposition: Routine/Home Disposition Time: 17:26 Condition: GOOD Instructions: Crohn Disease (ED)
== END 2017-09-04 17:44 | disposition home or self-care (01) ==
LOC: H.ER 16:28
DX: K50.90 Crohn's disease, unspecified, without complications (principal); G89.29 Other chronic pain; F41.9 Anxiety disorder, unspecified

== ENCOUNTER 2017-09-06 15:37 | Emergency (ER) | payer MEDICAID ==
[2017-09-06 15:37] VITALS: BMI 17.4
[2017-09-06 15:42] VITALS: BP 130/58; PULSE 96; RESP 16; TEMP 98.7; O2SAT 100
--- NOTE | 2017-09-06 16:16 | ED PDOC ---
HPI: General Adult Time Seen by Provider: 09/06/17 15:52 Chief Complaint (Nursing): Back Pain Chief Complaint (Provider): Generalized Pain History Per: Patient History/Exam Limitations: no limitations Onset/Duration Of Symptoms: Days (x3) Current Symptoms Are (Timing): Still Present Recently: Seen In ED Additional Complaint(s): 22 year old male with a past medical history of Crohn's disease presents to the Emergency Room complaining of worsening generalized pain over the past 2-3 days. Specifically he complains of pain to his right side, and describes having open abdominal wounds associated with his Crohn's. Denies any constipation, diarrhea, fevers, or chills. Additionally patient reports cough, congestion, and runny nose. States he usually takes Percocet for management of his chronic Crohn's pain. Patient reports he cannot take Tylenol or Toradol, requesting Percocet. Patient has had multiple ER visits for the same. Discussion was held regarding [facility] narcotics policy, and it was explained that patient cannot have Percocet rx refill written from the ER. Patient now requesting oxycodone, stating he does not take Percocet. PMD: Dr. Delon Reyes Past Medical History Reviewed: Historical Data, Nursing Documentation, Vital Signs Vital Signs: Last Vital Signs Temp 98.7 F 09/06/17 15:39 Pulse 96 H 09/06/17 15:39 Resp 16 09/06/17 15:39 BP 130/58 L 09/06/17 15:39 Pulse Ox 100 09/06/17 16:24 - Medical History PMH: Anemia, Anxiety, Crohn's Disease, Pneumonia, Chronic Pain Denies: Chronic Kidney Disease, TIA - Family History Family History: States: Unknown Family Hx - Immunization History Hx Tetanus Toxoid Vaccination: No Hx Influenza Vaccination: Yes Hx Pneumococcal Vaccination: No - Home Medications Home Medications: Ambulatory Orders Medication Instructions Recorded Alprazolam [Xanax] 0.5 mg PO BID PRN #6 tab 08/22/17 Acetaminophen [Tylenol 325mg tab] 650 mg PO Q6 PRN #30 tab 08/31/17 Ciprofloxacin HCl [Cipro] 500 mg PO BID #20 tablet 08/31/17 Dicyclomine [Bentyl] 20 mg PO Q6 PRN #20 tab 08/31/17 Famotidine [Pepcid] 20 mg PO BID PRN #20 tab 08/31/17 Ipratropium [Atrovent HFA] 0.018 mg IH Q6 PRN 5 Days #1 bottle 08/31/17 Methylprednisolone [Medrol Dose 4 mg PO DAILY #21 mg 08/31/17 Pack (21 tabs)] Metronidazole [Flagyl] 500 mg PO TID #30 tablet 08/31/17 - Allergies Allergies/Adverse Reactions: Allergies Allergy/AdvReac Type Severity Reaction Status Date / Time FISH Allergy RASH Verified 09/05/17 15:02 ketorolac [From Toradol] Allergy RASH Verified 09/05/17 15:02 shellfish derived AdvReac ANGIOEDEMA Verified 09/05/17 15:02 Review of Systems ROS Statement: Except As Marked, All Systems Reviewed And Found Negative Constitutional: Negative for: Fever, Chills ENT: Positive for: Nose Discharge, Nose Congestion Respiratory: Positive for: Cough Gastrointestinal: Positive for: Abdominal Pain (chronic per pt, hx of crohn's). Negative for: Diarrhea, Constipation Physical Exam - Reviewed Nursing Documentation Reviewed: Yes Vital Signs Reviewed: Yes - Physical Exam Appears: Positive for: Non-toxic, No Acute Distress Head Exam: Positive for: ATRAUMATIC, NORMAL INSPECTION, NORMOCEPHALIC Skin: Positive for: Normal Color, Warm, Dry Eye Exam: Positive for: EOMI, Normal appearance, PERRL ENT: Positive for: Nasal Congestion Neck: Positive for: Normal, Painless ROM, Supple Cardiovascular/Chest: Positive for: Regular Rate, Rhythm. Negative for: Murmur Respiratory: Positive for: Normal Breath Sounds. Negative for: Accessory Muscle Use, Wheezing, Respiratory Distress Pulses-Dorsalis Pedis (L): 2+ Pulses-Dorsalis Pedis (R): 2+ Gastrointestinal/Abdominal: Positive for: Soft, Other (with open wounds noted near umbilical region, chronic per patient. Site appears raygoza in color. No erythema, fluctuance, or induration). Negative for: Tenderness Back: Positive for: Normal Inspection. Negative for: L CVA Tenderness, R CVA Tenderness, Vertebral Tenderness Extremity: Positive for: Normal ROM. Negative for: Tenderness, Deformity, Swelling Neurologic/Psych: Positive for: Alert, Oriented (x3), Gait (steady). Negative for: Motor/Sensory Deficits - ECG O2 Sat by Pulse Oximetry: 100 (RA) Pulse Ox Interpretation: Normal Medical Decision Making Medical Decision Making: Initial Impression: Chronic Pain, Cough and Congestion Time: 16:10 Initial Plan: Offered non-narcotic pain medication, which patient declined. Offered medication for cough/congestion relief, patient declined. Is aaox3. Has capacity to make his own decisions. Patient left without treatment complete. Walked out of ER. States he is leaving if we are not giving narcotics. Scribe Attestation: Documented by Linda Shrestha, acting as a scribe for Alfonso Shabazz MD Provider Scribe Attestation: All medical record entries made by the Scribe were at my direction and personally dictated by me. I have reviewed the chart and agree that the record accurately reflects my personal performance of the history, physical exam, medical decision making, and the department course for this patient. I have also personally directed, reviewed, and agree with the discharge instructions and disposition Disposition - Clinical Impression Clinical Impression: Chronic abdominal pain - Patient ED Disposition Is Patient to be Admitted: No - Disposition Disposition: Left W/O Treatment Disposition Time: 16:10 Condition: STABLE
== END 2017-09-06 16:32 | disposition left against medical advice (07) ==
LOC: H.ER 15:37
DX: R10.9 Unspecified abdominal pain (principal); G89.29 Other chronic pain; K50.90 Crohn's disease, unspecified, without complications

== ENCOUNTER 2017-11-30 05:48 | Emergency (ER) | payer MEDICAID ==
[2017-11-30 05:48] VITALS: BMI 18.1
[2017-11-30 06:04] VITALS: BP 125/62; PULSE 82; RESP 18; TEMP 97; O2SAT 100
--- NOTE | 2017-11-30 06:54 | ED PDOC ---
HPI: Abdomen Time Seen by Provider: 11/30/17 06:08 Chief Complaint (Nursing): Abdominal Pain Chief Complaint (Provider): Abdominal Pain History Per: Patient History/Exam Limitations: no limitations Onset/Duration Of Symptoms: Sudden Onset Additional Complaint(s): 22 yo male with a history of Crohn's disease and multiple abdominal surgeries, presents to the ED requesting narcotics for his abdominal pain, onset of just prior to arrival. Upon chart review, it shows multiple visits at [facility], where he made similar requests and was informed about the narcotics policy in place. He denies any further complaints and social history. Past Medical History Reviewed: Historical Data, Nursing Documentation, Vital Signs Vital Signs: Last Vital Signs Temp 97 F L 11/30/17 06:02 Pulse 82 11/30/17 06:02 Resp 18 11/30/17 06:02 BP 125/62 11/30/17 06:02 Pulse Ox 100 11/30/17 15:14 - Medical History PMH: Anemia, Anxiety, Crohn's Disease, Pneumonia, Chronic Pain Denies: Chronic Kidney Disease, TIA - Surgical History Other surgeries: multiple abdominal surgeries - Family History Family History: States: Unknown Family Hx - Social History Current smoker - smoking cessation education provided: No Ex-Smoker (has not smoked in the last 12 months): No Alcohol: None Drugs: Denies - Immunization History Hx Tetanus Toxoid Vaccination: No Hx Influenza Vaccination: No Hx Pneumococcal Vaccination: No - Home Medications Home Medications: Ambulatory Orders Medication Instructions Recorded No Known Home Med 11/29/17 - Allergies Allergies/Adverse Reactions: Allergies Allergy/AdvReac Type Severity Reaction Status Date / Time FISH Allergy RASH Verified 11/07/17 10:31 ketorolac [From Toradol] Allergy RASH Verified 11/07/17 10:31 shellfish derived AdvReac ANGIOEDEMA Verified 11/07/17 10:31 Review of Systems ROS Statement: Except As Marked, All Systems Reviewed And Found Negative Constitutional: Negative for: Fever Psych: Positive for: Other (request narcotics). Negative for: Suicidal ideation Physical Exam - Reviewed Nursing Documentation Reviewed: Yes Vital Signs Reviewed: Yes - Physical Exam Appears: Positive for: Well, Non-toxic, No Acute Distress Head Exam: Positive for: ATRAUMATIC, NORMAL INSPECTION, NORMOCEPHALIC Skin: Positive for: Normal Color, Warm, DRY Eye Exam: Positive for: EOMI, Normal appearance, PERRL ENT: Positive for: Normal ENT Inspection Neck: Positive for: Normal, Painless ROM Cardiovascular/Chest: Positive for: Regular Rate, Rhythm. Negative for: Murmur Respiratory: Positive for: Normal Breath Sounds. Negative for: Respiratory Distress Gastrointestinal/Abdominal: Positive for: Normal Exam (mutiple surgical scars noted), Soft. Negative for: Tenderness Back: Positive for: Normal Inspection Extremity: Positive for: Normal ROM. Negative for: Pedal Edema, Deformity Neurologic/Psych: Positive for: Alert, Oriented. Negative for: Motor/Sensory Deficits - Laboratory Results Result Diagrams: 11/30/17 06:50 11/30/17 06:50 - ECG O2 Sat by Pulse Oximetry: 100 (RA) Pulse Ox Interpretation: Normal Medical Decision Making Medical Decision Making: Time: --06:20 Impression: --22 yo male with abdominal pain in setting of Crohn's Disease and drug seeking behavior Plan: --CT ABD & Pelvis IV Contrast --Alcohol Seurm --Labs --Drug Screen, Urien --Lipase --CBC --Bentyl 20mg PO ---Heplock Insertion --Urinalysis Reassess --Patient is bargaining with the provider to obtain Xanax. Provider makes patient aware of the narcotics policy in place and states that he will only receive Bentyl. Patient to be signed out to Dr. Bell pending CT, labs, reeval. Scribe Attestation: Documented by Jose Oneal acting as a scribe for Sher Garcia MD. Provider Attestation: All medical record entries made by the Scribe were at my direction and personally dictated by me. I have reviewed the chart and agree that the record accurately reflects my personal performance of the history, physical exam, medical decision making, and the department course for this patient. I have also personally directed, reviewed, and agree with the discharge instructions and disposition. Disposition - Clinical Impression Clinical Impression: Abdominal discomfort - Disposition Disposition: Transfer of Care Disposition Time: 07:00 Condition: FAIR Forms: [employer] (Maltese) Patient Signed Over To: Darrell Bell
[2017-11-30 06:56] LABS: BASO # 0.1 K/uL (0.0-0.2); BASO % 1.2 % (0.0-2.0); EOS # 0.1 K/uL (0.0-0.7); EOS % 2.1 % (0.0-4.0); HEMOGLOBIN 10.2 g/dL (12.0-18.0); LYMPH # 1.1 K/uL (1.0-4.3); MEAN CELL VOLUME 71.1 fl (80.0-94.0); MEAN CORPUSCULAR HEMOGLOBIN 22.1 pg (27.0-31.0); MEAN CORPUSCULAR HGB CONC 31.1 g/dL (33.0-37.0); MEAN PLATELET VOLUME 7.2 fl (7.2-11.7); MONO # 0.4 K/uL (0.0-0.8); MONO % 8.4 % (0.0-10.0); NEUT % 65.3 % (50.0-75.0); NRBC % 0.8 % (0.0-0.0); RBC 4.61 Mil/uL (4.40-5.90); RED CELL DISTRIBUTION WIDTH 20.6 % (11.5-14.5); WHITE BLOOD COUNT 4.6 K/uL (4.8-10.8)
[2017-11-30 07:05] LABS: ALB/GLOB RATIO 0.9 (1.0-2.1); ALBUMIN 4.3 g/dL (3.5-5.0); ALT/SGPT 30 U/L (21-72); AST/SGOT 32 U/L (17-59); BLOOD UREA NITROGEN 10 mg/dl (9-20); CALCIUM 9.3 mg/dL (8.4-10.2); GFR AFRICAN-AMERICAN > 60; GFR NON-AFRICAN AMERICAN > 60; LIPASE 46 U/L (23-300)
--- NOTE | 2017-11-30 08:16 | ED PDOC ---
- Laboratory Results Result Diagrams: 11/30/17 06:50 11/30/17 06:50 - ECG O2 Sat by Pulse Oximetry: 100 (RA) Medical Decision Making Medical Decision Making: Time: 0700 Patient signed out by Dr. Sher Garcia to myself. Pending Abdominal/Pelvis CT. labs reviewed,, wnl Time: 1036 Patient refused to wait for the CT results. i told him i am getting results shortly and i will let him know. radiologist called me with the report. when i went to room to give him results, he had left. He left before treatment was complete. Scribe Attestation: Documented by Maya Martinez, acting as a scribe for Darrell Bell MD. Provider Scribe Attestation: All medical record entries made by the Scribe were at my direction and personally dictated by me. I have reviewed the chart and agree that the record accurately reflects my personal performance of the history, physical exam, medical decision making, and the department course for this patient. I have also personally directed, reviewed, and agree with the discharge instructions and disposition. Disposition - Clinical Impression Clinical Impression: Abdominal discomfort - POA Present On Arrival: None - Disposition Disposition: Left W/O Treatment Disposition Time: 10:30 Condition: FAIR Forms: [employer] (Hebrew)
[2017-11-30] MEDS ORDERED: Iohexol 300 100 ML IJ ONE (08:19)
--- NOTE | 2017-11-30 11:19 | CT ---
PROCEDURE: CT Abdomen and Pelvis with contrast HISTORY: abd pain COMPARISON: 11/27/2016 TECHNIQUE: Contrast dose: 95 mL Omnipaque 300 Radiation dose: Total exam DLP = 198.59 mGy-cm. This CT exam was performed using one or more of the following dose reduction techniques: Automated exposure control, adjustment of the mA and/or kV according to patient size, and/or use of iterative reconstruction technique. FINDINGS: LOWER THORAX: 10 mm irregular nodule in the medial right lower lobe (series 5, image 1. This is only partially included in this examination. Uncertain significance. Infectious, inflammatory or neoplastic muscle be considered. Follow-up advised. Consider CT scan of the chest for further evaluation. LIVER: Unremarkable. No gross lesion or ductal dilatation. GALLBLADDER AND BILE DUCTS: Unremarkable. PANCREAS: Unremarkable. No gross lesion or ductal dilatation. SPLEEN: Normal size. Nonspecific 9 mm rounded low-attenuation lesion. Please note that the spleen is heterogeneously enhanced due to the early stage of scanning relative to contrast administration. ADRENALS: Unremarkable. No mass. KIDNEYS AND URETERS: Unremarkable. No hydronephrosis. No solid mass. VASCULATURE: Unremarkable. No aortic aneurysm. BOWEL: There are postoperative changes in the right lower quadrant of the abdomen with suture material and probable prior partial right colectomy. There is irregularity and deformity of the right psoas muscle and right iliopsoas muscle. There is no collections seen within this OS. There is some central high attenuation within this LS most clearly evident on 78 through 90. Uncertain significance. Please note that on images 92 through 97, there is soft tissue density in the right anterior abdomen with central curvilinear enhancement, possibly representing the flight min or incipient abscess. Followup is advised. No definite collection is identified. There are no other abnormal bowel loops identified. APPENDIX: Not identified. Question of possible prior right hemicolectomy and appendectomy. PERITONEUM: Unremarkable. No free fluid. No free air. LYMPH NODES: Unremarkable. No enlarged lymph nodes. BLADDER: Unremarkable. REPRODUCTIVE: Normal prostate BONES: No acute fracture. OTHER FINDINGS: None. IMPRESSION: Abnormal right psoas and right iliacus LS. Please note that in retrospect, on examination of 11/27/2016, there was gas and heterogeneous low-attenuation seen within the right iliopsoas muscle indicating possible abscess. The findings on current examination may reflect post inflammatory change. Nevertheless, cannot rule out current inflammatory process involving the right iliopsoas. Abnormal soft tissue density in the right anterior abdomen containing curvilinear high attenuation/ enhancement. Possible phlegmon or incipient abscess. Please correlate clinically. Postoperative changes in right lower quadrant. Probable prior partial right hemicolectomy. Incidental irregular 9 mm nodule in medial right lower lobe partially included this examination. Recommend follow-up evaluation. Consider CT examination of the chest. Nonspecific 9 mm low-attenuation lesion within the spleen. Possible cyst, hemangioma or lymphangioma. At
== END 2017-11-30 10:50 | disposition left against medical advice (07) ==
LOC: H.ER 05:48
DX: R10.9 Unspecified abdominal pain (principal); F41.9 Anxiety disorder, unspecified; G89.29 Other chronic pain; K50.90 Crohn's disease, unspecified, without complications
CPT/HCPCS: 74177; 80053; 80320; 83690; 85025; 99283; Q9967